=== PATIENT | female | born 1965 | race Caucasian/White ===

== ENCOUNTER → 2017-12-05 | Outpatient (CLI) | payer OTHER ==
[~2017-12-05] MED LIST: ABILIFY 5 MG TAB5 MG PO; ACETAMINOPHEN325 M1 PO; ALPRAZOLAM 0.0.25 M1 PO; CELEXA40 MG PO; CONCERTA36 M1 PO; CYMBALTA30 MG PO; CYMBALTA60 MG PO; ELIQUIS5 MG PO; FIORICET 50-321 EACH PO; FOCALIN XR40 MG PO; HIGH BP MED; IMITREX 50 MG T50 M1 PO; MOBIC15 MG PO; MS CONTIN15 MG PO; NABUMETONE 750750 M1 PO; NORCO 5-325 TA1 EACH PO; NUCYNTA ER100 MG PO; NUCYNTA100 MG PO; NUCYNTA75 MG PO; OXYCODONE-APAP1 EAC6 PO; PERCOCET 5-3251 EACH PO; PERCOCET 7.5-31 EACH PO; PREDNISONE 10 M10 M1 PO; TIROSINT75 MCG PO; TOPROL XL100 MG PO; VIIBRYD10 MG PO; WELLBUTRIN SR150 MG PO; ZIAC 10-6.25 M1 EACH PO; ZOLOFT100 MG PO; [UNRECOGNIZED DRUG - OTHER] PO; carvedilol PO
--- NOTE | 2017-12-10 07:21 | PAINCON ---
[facility] [address] [place] [address] PAIN MANAGEMENT CONSULTATION Name: RICHIE ARANDA Room: [facility] Tiffanie#: [id number] Admission: 12/05/17 Attend Phys: Shelby Santana Discharge: Date of : 65 Report #: [id number] THIS REPORT FOR: //name// CC: Mila Lucas DATE OF SERVICE: 12/05/2017 The patient is a 52-year-old female well known to the Pain [facility], typically treated for lumbar radiculopathy, requiring high-risk complex medication management. Last seen in the Pain Clinic on 09/12/2017. Continued on MS Contin 15 mg b.i.d. with Nucynta 100 mg 3-4 times a day, limit 100 tablets for 30 days. 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 Returns to Pain Clinic today. We had a prolonged visit today. Greater than 30 minutes was spent with the patient reviewing therapeutic options today. The patient notes she has completed her cardiac rehab. She is walking regularly still. She notes she is struggling with some depression following the surgery. She also notes that her father has been recently diagnosed with stage 4 pulmonary cancer. The patient is struggling with some intermittent atrial fibrillation. Her radiology manager feels that it may be related to surgery. They are postponing moving forward with catheter node ablation. The patient notes otherwise current pain is moderately well controlled. She rates it a 3 on a VAS. PHYSICAL EXAMINATION: Shows 5 feet 2 inches, 144-pound female, BMI is 26.2 kg/m2, blood pressure wnl, pulse 85, respirations 16. Rises from chair using armrest. Gait is tandem with subjective pain in the right leg, though lower extremity strength is preserved. Subjective chest wall pain is fairly nominal. We again talked about anxiety and depression, chronic pain and depression, and situational anxiety and depression. RECOMMENDATION: After a long discussion with the patient today, we have elected to add Cymbalta low-dose 30 mg 1 a day. Follow up in 1 month for reevaluation. If tolerating the medicine well, but not having significant efficacy, we may increase to 60 mg. I have taken the liberty of renewing 1 month her MS Contin 15 mg b.i.d. and Nucynta 100 mg, limit 100 tablets for 30 days. If doing well at next visit, we will resume multi-month prescription. We reviewed the fact that opiate medications are being used to provide analgesia adequate to support activities of daily living, not [place] [address] PAIN MANAGEMENT CONSULTATION Name: RICHIE ARANDA Room: [facility]#: [id number] Admission: 12/05/17 Attend Phys: Shelby Santana Discharge: Date of : 65 Report #: [id number] specific pain score on the 0-10 Visual Analog Scale. The current opiate medications are providing sufficient analgesia to allow the patient to participate in activities of daily living. The patient is not exhibiting any aberrant behavior suggestive of drug diversion. The patient is not having any adverse reactions to medications. The patient is not suffering from daytime somnolence or mental acuity changes. The patient is managing opiate-induced constipation with appropriate fhyn-xjk-ragkijf agents and dietary considerations. The patient was counseled on concern for caution with operating a motor vehicle while using opiate medications. A physical exam was performed and the patient's functional status was evaluated. All patients with back pain were advised against the bed rest greater than 4 days and were advised to return to normal activities. Pain score assessment was noted and the treatment plan was reviewed with the patient. All current medications, both prescribed and OTC were reviewed and reconciled on the electronic medical record. Tobacco screening was accomplished and smoking cessation was advised when indicated. BMI was noted and diet/exercise modification was recommended for all patients following outside normal parameters. I reviewed with the patient today their responsibilities to safeguard prescription medications, reviewed their responsibility to utilize medications only as prescribed by the physician. They are to seek and receive pain medications only from 1 physician group ( [facility]). They are to use 1 pharmacy and keep the clinic informed if they change pharmacies. Their responsibilities include making followup visits in a timely fashion and to avoid abrupt discontinuation of medication usage. Their responsibilities further include bringing their medications (bottles from the pharmacy with residual pills) to the visit for possible confirmation of pill counts and the patient understands it is their responsibility to submit to random drug screens to ensure both that the medications prescribed are present, and that no other controlled substances are present. All prescriptions provided today were generated electronically. The patient is discharged in good and stable condition after prolonged visit. Greater than 25 minutes was spent primarily counseling the patient. ASSESSMENT: 1. Lumbar radiculopathy. 2. Chronic axial back pain. 3. Complicated depression, reactive. 4. High-risk complex [place] [address] PAIN MANAGEMENT CONSULTATION Name: RICHIE ARANDA Shelby [facility] [id number] Admission: 12/05/17 Attend Phys: Shelby Santana Discharge: Date of : 65 Report #: [id number] Discharged in good and stable condition. <ELECTRONICALLY SIGNED> By: Parveen Lucas DO 12/10/17 0721 [id number] Lucas DO /nt
== END ==
LOC: M.PC 02:50
DX: M54.16 Radiculopathy, lumbar region (principal); F32.89 Other specified depressive episodes; M54.9 Dorsalgia, unspecified; Z79.899 Other long term (current) drug therapy

== ENCOUNTER → 2018-01-02 | Outpatient (CLI) | payer OTHER ==
--- NOTE | 2018-01-09 07:59 | PAINCON ---
[facility] [address] [place] [address] PAIN MANAGEMENT CONSULTATION Name: RICHIE ARANDA Room: [facility] Tiffanie#: [id number] Admission: 01/02/18 Attend Phys: Shelby Santana Discharge: Date of : 65 Report #: [id number] THIS REPORT FOR: //name// CC: Mila Lucas HISTORY OF PRESENT ILLNESS: This is a very pleasant 52-year-old female being treated for symptomatic lumbar radiculopathy, axial back pain requiring complex medication management. Last visit, we discussed some concerns with depression. The patient returns to pain clinic today noting pain continued to be problematic, but she is feeling a little bit better. She has been stable on MS Contin 15 mg b.i.d., Nucynta 100 mg t.i.d. for quite some time. We did get a buccal swab today. We will get a buccal random drug swab today. No aberrant behavior suggestive of drug diversion, simply complying with opiate consent to treat contract. She notes that the Cymbalta 30 mg daily does seem to be helping though she does feel just generally tired. She does have multiple anxieties including dealing with her father who has metastatic cancer. Personally, she had cardiac surgery for aortic arch aneurysm. She is actually doing well overall and states she started using melatonin. She states she has actually had an excellent night sleep last night, which is the first time in some time. She thinks it may have been related melatonin though in further discussion, she also notes that she did have a long discussion with the father today about a lot of end of life issues. She states it was, while better suite, a very helpful talk and she felt much more relaxed and at ease following the conversation. I talked today about continuing Cymbalta for another 2 or 3 weeks. If she continues to have daytime sedation and lethargy, we will simply discontinue the Cymbalta and evaluate its efficacy somewhat in retrospect. Otherwise, we will continue baseline medication unchanged including the MS Contin 15 mg b.i.d. and Nucynta 100 mg 1 tablet 3-4 times a day. We did briefly discuss that there is a concern that Nucynta may become unavailable due to [employer] company's somewhat limiting its production. She has been stable on this medication. We will continue to write for it as long as it is able. We reviewed the fact that opiate medications are being used to provide analgesia adequate to support activities of daily living, not attempting to achieve a specific pain score on the 0-10 Visual Analog Scale. The current opiate medications are providing sufficient analgesia to allow the patient to participate in activities of daily living. The patient is not exhibiting any [facility] [address] [place] [address] PAIN MANAGEMENT CONSULTATION Name: RICHIE ARANDA [facility] [id number] Admission: 01/02/18 Attend Phys: Shelby Santana Discharge: Date of : 65 Report #: [id number] aberrant behavior suggestive of drug diversion. The patient is not having any adverse reactions to medications. The patient is not suffering from daytime somnolence or mental acuity changes. The patient is managing opiate-induced constipation with appropriate zyxh-qop-hexsdyt agents and dietary considerations. The patient was counseled on concern for caution with operating a motor vehicle while using opiate medications. A physical exam was performed and the patient's functional status was evaluated. All patients with back pain were advised against the bed rest greater than 4 days and were advised to return to normal activities. Pain score assessment was noted and the treatment plan was reviewed with the patient. All current medications, both prescribed and OTC were reviewed and reconciled on the electronic medical record. Tobacco screening was accomplished and smoking cessation was advised when indicated. BMI was noted and diet/exercise modification was recommended for all patients following outside normal parameters. I reviewed with the patient today their responsibilities to safeguard prescription medications, reviewed their responsibility to utilize medications only as prescribed by the physician. They are to seek and receive pain medications only from 1 physician group ( [facility]). They are to use 1 pharmacy and keep the clinic informed if they change pharmacies. Their responsibilities include making followup visits in a timely fashion and to avoid abrupt discontinuation of medication usage. Their responsibilities further include bringing their medications (bottles from the pharmacy with residual pills) to the visit for possible confirmation of pill counts and the patient understands it is their responsibility to submit to random drug screens to ensure both that the medications prescribed are present, and that no other controlled substances are present. All prescriptions provided today were generated electronically. Follow up in 2 months for reevaluation. <ELECTRONICALLY SIGNED> By: Parveen Lucas DO 01/09/18 0759 [id number] [id number] Lucas DO /kaylene
== END ==
LOC: M.PC 04:52
DX: M54.16 Radiculopathy, lumbar region (principal); Z79.899 Other long term (current) drug therapy

== ENCOUNTER → 2018-03-27 | Outpatient (CLI) | payer OTHER ==
--- NOTE | 2018-03-28 07:13 | PAINCON ---
[address] [address] PAIN MANAGEMENT CONSULTATION Name: RICHIE ARANDA Room: [facility] Tiffanie#: [id number] Admission: 03/27/18 Attend Phys: Shelby Santana Discharge: Date of : 65 Report #: [id number] THIS REPORT FOR: //name// CC: Mila Lucas The patient is a very pleasant 52-year-old female, long treated for lumbar radiculopathy, axial back pain requiring complex medication management. The patient returns to pain clinic today. We had a prolonged visit, greater than 30 minutes was spent with the patient, 50% of the time was spent counseling the patient. She has ongoing pain in the low back, right buttock and posterior leg. She has had occasional epidural injections with improvement of symptoms; however, she did have an untoward reaction subsequent to a steroid injection, cervical epidural injection back in 2009. The patient developed dehydration, nausea, vomiting, hypokalemia. The patient was treated conservatively and ultimately discharged in stable condition. We have done few subsequent epidural injections, single injection in 12/2011, 02/2013 and 06/2014. Diagnostic studies include MRI of the lumbar spine back from 2008 noting focal right foraminal disk protrusion at L5-S1 with moderate inferior neural foraminal encroachment. Advanced facet arthropathy was noted at L4-L5 and L5-S1. The patient has been remarkably stable on current medications. We did receive a notice from [facility] noting that despite the fact the patient has been remarkably stable on moderate dose opiate taking the equivalent of up to 75 mg of morphine daily (MS Contin 15 mg b.i.d. with Nucynta 100 mg t.i.d.), [facility] is noting that the patient will require prior authorization for ongoing opiate management. The patient has an opiate consent to treat contract. We have performed random drug screens, always appropriate medications being noted. In fact, last random drug screen we accomplished was last visit. This has afforded some consternation. While we had arranged with the third alliance party vendor to have random drug screens covered with the patients being charged their usual copay, having been assured that this averages at $100 or less, the patient was charged nearly $1000 by the vendor. I did ask the administrative staff at [facility] to address this issue with the patient and strongly advised her to not pay this usurious fee. The patient presents to pain clinic today. Tragically, her 20-year-old daughter was involved in a motor vehicle accident on 01/18/2018 and lost her life. The patient is struggling with grief. [place] [address] PAIN MANAGEMENT CONSULTATION Name: RICHIE ARANDA [facility] [id number] Admission: 03/27/18 Attend Phys: Shelby Santana Discharge: Date of : 65 Report #: [id number] I had started the patient on Cymbalta 30 mg prior to help with some chronic pain concerns. She feels that this is affording some nominal amount of relief. We talked about increasing this to 60 mg a day for multiple obvious reasons. To her credit, she continues to attempt to do the treadmill daily, averaging about 60 minutes and she does stretch pre and post. She rates her pain today a 4 on a VAS. PHYSICAL EXAMINATION: Shows 5 feet 2 inches tall female, BMI is 27 kilograms per meter squared. Blood pressure 151/87, pulse 92, respirations are 18. Rises from chair using armrest. Cervical range of motion is adequate. Upper extremity strength is generally preserved. Some diffuse tenderness across the low back. Has a modestly antalgic gait with some diffuse tenderness in the right low back, buttock, and leg. Modestly positive straight leg raise on the right. Lower extremity strength, however, remains preserved. Some diffuse tenderness in the low back. No discrete trigger points are noted. We reviewed the fact that opiate medications are being used to provide analgesia adequate to support activities of daily living, not attempting to achieve a specific pain score on the 0-10 Visual Analog Scale. The current opiate medications are providing sufficient analgesia to allow the patient to participate in activities of daily living. The patient is not exhibiting any aberrant behavior suggestive of drug diversion. The patient is not having any adverse reactions to medications. The patient is not suffering from daytime somnolence or mental acuity changes. The patient is managing opiate-induced constipation with appropriate ehju-gmn-fuwhsfp agents and dietary considerations. The patient was counseled on concern for caution with operating a motor vehicle while using opiate medications. A physical exam was performed and the patient's functional status was evaluated. All patients with back pain were advised against the bed rest greater than 4 days and were advised to return to normal activities. Pain score assessment was noted and the treatment plan was reviewed with the patient. All current medications, both prescribed and OTC were reviewed and reconciled on the electronic medical record. Tobacco screening was accomplished and smoking cessation was advised when indicated. BMI was noted and diet/exercise modification was recommended for all patients following outside normal parameters. I reviewed with the patient today their responsibilities to safeguard prescription medications, reviewed their responsibility to utilize medications only as prescribed by the physician. They are to seek and receive pain medications only from 1 physician group ( [facility]). They are to use 1 pharmacy and keep the clinic informed if they change pharmacies. Their [facility] [address] [place] [address] PAIN MANAGEMENT CONSULTATION Name: RICHIE ARANDA Room: [facility]#: [id number] Admission: 03/27/18 Attend Phys: Shelby Santana Discharge: Date of : 65 Report #: [id number] responsibilities include making followup visits in a timely fashion and to avoid abrupt discontinuation of medication usage. Their responsibilities further include bringing their medications (bottles from the pharmacy with residual pills) to the visit for possible confirmation of pill counts and the patient understands it is their responsibility to submit to random drug screens to ensure both that the medications prescribed are present, and that no other controlled substances are present. All prescriptions provided today were generated electronically. ASSESSMENT: Symptomatic lumbar radiculopathy, chronic pain syndrome requiring complex medication management with comorbidity of complex grieving following of a child. RECOMMENDATIONS: After a long discussion with the patient today, we elected to increase Cymbalta to 60 mg daily, continue MS Contin 15 mg b.i.d. Unfortunately, the medication she has been most stable on, Nucynta 100 mg t.i.d. has been discontinued by the hand tool filer. I have taken the liberty of writing for this medication for 1 more month. I do not want to make a lot of changes at this fragile point in time for the patient. I did, however write for her 4-week release prescription to rotate from Nucynta 100 mg t.i.d. to Percocet 7.5/325 t.i.d. I have taken the liberty of writing for a total of 3 months of current medication. I did inform the patient that I am leaving the practice area. I will ask my partner, Dr. Angus Puente to see if he can work her into his schedule. Otherwise, we will have the patient follow up with her primary care physician and/or her third alliance party payer, [employer] to find a pain clinic physician in her network. Discharged in good and stable condition. Plan to have her follow up in [address] Angus Puente. She was seen for prolonged visit, greater than 30 minutes was spent counseling the patient today. <ELECTRONICALLY SIGNED> By: Parveen Lucas DO 03/28/18 0713 [id number] [id number] Lucas DO /nt
== END ==
LOC: M.PC 04:03
DX: M54.16 Radiculopathy, lumbar region (principal); G89.4 Chronic pain syndrome; Z79.899 Other long term (current) drug therapy

== ENCOUNTER → 2018-06-20 | Outpatient (CLI) | payer OTHER ==
--- NOTE | 2018-06-26 16:41 | PAINCON ---
[facility] [address] [place] [address] PAIN MANAGEMENT CONSULTATION Name: RICHIE ARANDA Room: [facility] Tiffanie#: [id number] Admission: 06/20/18 Attend Phys: Zunilda Puente MD Discharge: Date of : 65 Report #: [id number] THIS REPORT FOR: //name// CC: Mila Puente DATE OF SERVICE: 06/20/2018 CHIEF COMPLAINT: Low back and right buttocks pain as well as pain down to the right hip. Pain has been a problem for a number of years. FOLLOWUP HISTORY: The patient is a 52-year-old female who has been followed in the pain clinic by Dr. Parveen Lucas. This is my first visit with the patient. She is a pleasant female who has been plagued by lumbar radiculopathy. She has axial back pain and required complex medication management. The patient has received improvement with use of her medications. She finds that Cymbalta, morphine and oxycodone are helpful. Pain involves her low back with radiation down to the right buttocks and right hip. Over the last 2 weeks, she has noted some pain and discomfort in her neck. Described as constant. Notes that it is worse when she is turning left and right as well as looking up. Feels that the right hip pain is stable at this juncture. She would like to have her medications renewed. MRI results from 2008 showed some right foraminal disk protrusion at L5-S1 and moderate inferior neural foraminal encroachment. Advance facet arthropathy was also noted at L4-L5 and L5-S1. She has been stable on her current medications. She did find that Nucynta was helpful. Unfortunately, it appears that the Nucynta has been taken off the market. ALLERGIES: No known drug allergies. MEDICATIONS: Eliquis 5 mg b.i.d., Cymbalta 60 mg, metoprolol XL 100, morphine sulfate 15 mg b.i.d., Percocet 7.5 mg t.i.d., carvedilol 2 tablets b.i.d., Tikosyn 1 tablet daily. PAST MEDICAL HISTORY: 1. Status post aortic valve replacement secondary to bicuspid valve. 2. History of ascending thoracic aneurysm repair. 3. Atrial fibrillation after aortic aneurysm repair. 4. Chronic atrial fibrillation at this juncture. 5. Depression since 18-year-old daughter was in a motor vehicle accident. 6. Low back pain, right buttocks pain and right hip pain. PAST SURGICAL HISTORY: 1. Aortic valve replacement in 2017. 2. Hysterectomy. 3. [place] [address] PAIN MANAGEMENT CONSULTATION Name: RICHIE ARANDA Room: [facility] Tiffanie#: [id number] Admission: 06/20/18 Attend Phys: Zunilda Puente MD Discharge: Date of : 65 Report #: [id number] REVIEW OF SYSTEMS: Generally negative at this point for fever, chills, shortness of breath, chest pain, bowel problems, bladder problems. PAIN CLINIC ASSESSMENT: 1. History of osteoarthritis involving her right hip. 2. Height 5 feet 2 inches, weight 155 pounds and BMI is 28.5. 2. Vital signs: Blood pressure 149/90, heart rate 90, respiratory rate 16, room air saturation 100% and temperature 98.8. 3. Pain score 3/10 in the hip 7-8/10 involving the neck. 4. Fall risk. The patient has not fallen in the last 3 months. 5. Blood thinner. The patient is on blood thinner, Eliquis secondary to atrial fibrillation. 6. Hypertension. The patient is being treated for hypertension. 7. Opioid therapy. The patient is receiving opioid medications on a regular basis from the pain clinic. 8. Risk assessment tool. 9. Functional assessment tool. 10. Recreational drug use. The patient denies use of recreational drugs. 11. Tobacco: The patient denies use of tobacco. 12. Alcohol: The patient uses alcohol on a regular basis. MENTAL STATUS EXAMINATION: GENERAL: The patient is a well-developed, well-nourished white female. Appears her stated age. She is alert and oriented x 3. Affect is appropriate. Speech is fluent. HEENT: Normocephalic, atraumatic. Extraocular eye muscles intact. Sclerae nonicteric. Mucous membranes are moist. NECK: With some limited range of motion with left light bending, left and right extension. The patient rates this pain in the neck is somewhat problematic and rates it as a 7-8 at this juncture. She has some soreness in the area of the trapezius, left and right, some discomfort in the area of the superior portion of the scapula, soreness in the occipital area on the left, not so much on the right. HEART: Regular rate with sign of murmur. Pulses felt. Regular rate today. ABDOMEN: Nontender. Low back without significant kyphosis, scoliosis. Has pain and discomfort in the right hip as well as some pain radiating down to the right leg. Muscle strength in the upper extremity judged to be 5/5 for the major muscle groups, 5/5 for the lower back as well. IMPRESSION: Low back pain, right buttocks pain and right hip pain. RECOMMENDATIONS: We discussed treatment options with the patient. At this juncture, we will continue with her current regimen of Cymbalta 60 mg daily, morphine ER 15 mg b.i.d., oxycodone 7.5 mg t.i.d. [place] [address] PAIN MANAGEMENT CONSULTATION Name: RICHIE ARANDA [facility]#: [id number] Admission: 06/20/18 Attend Phys: Zunilda Puente MD Discharge: Date of : 65 Report #: [id number] the near future. We would like to thank you for letting us participate in her care. We hope she continues to improve. <ELECTRONICALLY SIGNED> By: Zunilda Puente MD 06/26/18 1641 [id number]. Angus Puente MD /nt
== END ==
LOC: M.PC 03:20
DX: M54.5 Low back pain (principal); M25.551 Pain in right hip; I48.91 Unspecified atrial fibrillation; F32.9 Major depressive disorder, single episode, unspecified; Z90.710 Acquired absence of both cervix and uterus; Z90.89 Acquired absence of other organs

== ENCOUNTER → 2018-10-01 | Outpatient (CLI) | payer OTHER ==
[~2018-10-01] MED LIST changes: +HYDROCODONE-AP1 EA11 PO
--- NOTE | 2018-10-04 17:20 | PAINCON ---
[facility] [address] [place] [address] PAIN MANAGEMENT CONSULTATION Name: RICHIE ARANDA Room: [facility] WILLEM Moreno#: [id number] Admission: 10/01/18 Attend Phys: Zunilda Puente MD Discharge: Date of : 65 Report #: [id number] THIS REPORT FOR: //name// CC: Mila Puente DATE OF SERVICE: 10/01/2018 FOLLOWUP HISTORY: Still said because my daughter in the early part of the year. HISTORY: The patient is a 52-year-old female who has been followed in the pain clinic. She has pain and discomfort in her buttocks as well as pain that radiates down to the right hip to the lateral side. She has had this problem for a number of years. Finds that medications of morphine 15 mg and oxycodone have been helpful. Feels that the oxycodone may be a little bit too strong. Feels that this makes her somewhat a bit more sedated. She would like to try a different medication. She has used hydrocodone and Vicodin in the past. She would like to try this and see whether or not there is less problem as a result of this medication and less drowsiness associated with it. She rates her pain as a 4/10. As you may recall, she had some problem with her heart. She underwent a cardiac ablation in August. Overall, she feels that the pain is improved with her current medical regimen and would like to continue with it. She would like to try hydrocodone instead of oxycodone. LABORATORY DATA: As you may recall, patient has an MRI that showed right foraminal disk protrusion at L5-S1 and moderate inferior neural foraminal encroachment in the low back area. Has some advanced facet arthropathy noted at L4-L5 and L5-S1. The patient did try Nucynta the past. Nucynta was taken off the market, therefore, she was placed on the oxycodone. ALLERGIES: No known drug allergies. CURRENT MEDICATIONS: Eliquis 5 mg b.i.d., Cymbalta 60 mg, metoprolol XL, morphine sulfate 15 mg, Percocet 7.5 mg t.i.d., carvedilol 2 tablets b.i.d., Tikosyn one tablet daily. PAIN CLINIC ASSESSMENT/PQRS: 1. History of osteoarthritis involving her left hip and low back area. 2. The patient is not being treated for rheumatoid arthritis. 3. Height 5 feet 2 inches, weight 156 pounds, BMI is 28. 4. Vital signs: Blood pressure 141/83, heart rate 95, respiratory rate 16, room air saturation 99%, temperature 98.0. 5. Pain score 4/10. 6. Fall history: The patient has not fallen in the last 3 months. 7. Blood thinner. The patient is on a blood thinning [place] [address] PAIN MANAGEMENT CONSULTATION Name: RICHIE ARANDA Room: [facility]#: [id number] Admission: 10/01/18 Attend Phys: Zunilda Puente MD Discharge: Date of : 65 Report #: [id number] atrial fibrillation. 8. Hypertension. The patient is being treated for hypertension. 9. Opioid therapy. The patient is receiving medications on a regular basis from the pain clinic. 10. Risk assessment tool, low for opioid use. 11. Functional assessment tool. 12. Recreational drug use. The patient denies use of recreational drugs. 13. Tobacco: The patient denies use of tobacco. 14. Alcohol: The patient denies use of alcoholic beverages on a regular basis. PHYSICAL EXAMINATION: GENERAL: The patient is a well-developed, well-nourished white female. Appears her stated age. She is alert and oriented x 3. She is somewhat tearful as we discussed the loss associated with her daughter who was involved in a motor vehicle accident in December of this year. States that she tries to stay strong for her son who is often college. HEENT: Normocephalic, atraumatic. Extraocular eye muscles intact. Sclerae nonicteric. Mucous membranes are moist. The patient does have hearing aids. NECK: With some limitation with left and right lateral bending, left and right lateral extension. The patient has some soreness in the area of the trapezius, left and right. Some pain in the area of the scapula with soreness in the occipital area on the left. HEART: Regular rate with history of murmur, history of atrial fibrillation. ABDOMEN: Nontender. Bowel sounds positive. MUSCULOSKELETAL: Low back pain without significant kyphosis or scoliosis. No significant lordosis. The patient is explaining some pain that radiates down the buttocks, left lateral L5 distribution on the right to a level above the knee. Muscle strength 5/5. IMPRESSION: 1. Low back pain. 2. Atrial fibrillation, status post ablation in 08/2008. RECOMMENDATIONS: We discussed treatment options with the patient. She feels that the oxycodone medication may be causing some increased sedation. She has used Vicodin, which was less problematic. She was on Nucynta. This medication was taken off the market. At this juncture, she would like to try hydrocodone in place of oxycodone. She feels that this might be beneficial with less sedation. We have discussed this and will try hydrocodone 7.5/325 mg tablets 1 p.o. t.i.d. A script for these medications have been provided. If she notes continuous sedation, we will consider the possibility of trying [place] [address] PAIN MANAGEMENT CONSULTATION Name: RICHIE ARANDA Room: [facility]#: [id number] Admission: 10/01/18 Attend Phys: Zunilda Puente MD Discharge: Date of : 65 Report #: [id number] would like to thank you for letting us participate in her care. We hope she continues to improve. <ELECTRONICALLY SIGNED> By: Zunilda Puente MD 10/04/18 1720 [id number]. Angus Puente MD /nt
== END ==
LOC: M.PC 09-12 05:35
DX: M54.5 Low back pain (principal); I48.91 Unspecified atrial fibrillation; Z79.899 Other long term (current) drug therapy

== ENCOUNTER → 2018-12-24 | Outpatient (CLI) | payer OTHER ==
[~2018-12-24] MED LIST changes: +DOFETILIDE250 MCG PO; +LEXAPRO 10 MG T10 M2 PO; +TOPROL XL25 MG PO
--- NOTE | ~2018-12-24 | PAINCON ---
[address] [address] PAIN MANAGEMENT CONSULTATION Name: RICHIE ARANDA Room: [facility] Moreno#: [id number] Admission: 12/24/18 Attend Phys: Zunilda Puente MD Discharge: Date of : 65 Report #: [id number] THIS REPORT FOR: //name// CC: Mila Puente DATE OF SERVICE: 12/24/2018 CHIEF COMPLAINT: Here for medication renewal. HISTORY OF PRESENT ILLNESS: The patient is a 53-year-old female who has been followed in the pain clinic. As you recall, she has pain and discomfort that radiates down into her hips. She has had problems with this for a number of years. She has been treated with morphine and oxycodone. She feels that these medications continue to be helpful. She continues to experience low back pain. She feels that her pain remains about the same level of 3/10. She has noticed pain in her arms and legs. They have been aching. She has noted some worsening of pain given the change in the weather, which has been quite variable over the last few days. Notes that activities such as walking, sitting, standing, climbing stairs can be problematic. Also, notes some improvement when she takes her medication, rest, massage as well as stretching exercises. Feels that her hydrocodone and morphine are beneficial and would like to have them renewed. As you may recall, she has some problems with her heart back in August. She has undergone a cardiac ablation. ALLERGIES: No known drug allergies. CURRENT MEDICATIONS: Eliquis 5 mg b.i.d., Cymbalta 60 mg, metoprolol XL, morphine sulfate 15 mg, Percocet 7.5 mg t.i.d., carvedilol 2 tablets b.i.d., Tikosyn 1 tablet daily. PAIN CLINIC ASSESSMENT AND PQRS: 1. History of osteoarthritis involving her left hip and low back area. The patient is not being treated for rheumatoid arthritis. 2. Height 5 feet 2 inches, weight 160 pounds, BMI is 29.6. 3. Vital Signs: Blood pressure 132/82, heart rate 90, respiratory rate 16, room air saturation is 95%, temperature 98.1. 4. Pain intensity 01/05. 5. Fall history. The patient has not fallen in the last 3 months. 6. Blood thinner. The patient is on a blood thinning medication secondary to atrial fibrillation. 7. Hypertension. The patient is being treated for hypertension. 8. Opioids greater than 6 weeks. The patient receives her medication from one source, the pain clinic. 9. Risk assessment tool, [place] [address] PAIN MANAGEMENT CONSULTATION Name: RICHIE ARANDA Room: [facility]#: [id number] Admission: 12/24/18 Attend Phys: Zunilda Puente MD Discharge: Date of : 65 Report #: [id number] 10. Functional assessment tool. 11. Recreational drug use. The patient denies use of recreational drugs. 12. Tobacco: The patient denies use of tobacco. 13. Alcoholic beverages. The patient denies use of alcohol on a regular basis. PHYSICAL EXAMINATION: GENERAL: The patient is a well-developed, well-nourished, white female. Appears her stated age. She is alert and oriented x 3. Her affect is appropriate. The patient has had some trauma in her life. As you recall, her daughter was involved in a motor vehicle accident. Still has a son in college. HEENT: Normocephalic, atraumatic. Extraocular eye muscles intact. Sclerae nonicteric. Mucous membranes are moist. The patient has hearing aids in place. NECK: Without JVD. Has some left and right lateral bending limitations. Soreness in the upper shoulder area. HEART: History of atrial fibrillation, status post ablation. ABDOMEN: Nontender. Bowel sounds present. MUSCULOSKELETAL: The patient without significant scoliosis or kyphosis. Has some pain that radiates down to the L5 distribution on the left. Muscle strength is judged to be 5-/5 for the major muscle groups. 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 She feels that her medications are working reasonably well. She is not having any problems with them. We will renew her medications. A script for hydrocodone 7.5 mg 1 p.o. t.i.d. and morphine 15 mg ER b.i.d. have been rewritten. The patient will call us if she has any concerns. 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 They can cause development of tolerance with prolonged use as well as less effect because of the tolerance. The patient is also aware of the possibility of addiction with these medications. Feels medications are working reasonably well and able her to remain gainfully employed. We would like to thank you for letting us participate in her care. We hope she continues to improve. By: [id number]. Angus Puente MD /RYAN
== END ==
LOC: M.PC 09:30
DX: M25.551 Pain in right hip (principal); M25.552 Pain in left hip; M54.5 Low back pain; Z79.899 Other long term (current) drug therapy

== ENCOUNTER → 2019-03-18 | Outpatient (CLI) | payer OTHER ==
--- NOTE | ~2019-03-18 | PAINCON ---
[facility] [address] [place] [address] PAIN MANAGEMENT CONSULTATION Name: ROSIRICHIE RICE Room: [facility] Tfifanie#: [id number] Admission: 03/18/19 Attend Phys: Zunilda Puente MD Discharge: Date of : 65 Report #: [id number] THIS REPORT FOR: //name// CC: Mila Puente DATE OF SERVICE: 03/18/2019 CHIEF COMPLAINT: Low back pain with pain radiating down to the right hip and legs. FOLLOWUP HISTORY: The patient is a 53-year-old female, who has been followed in the pain clinic. As you recall, she has discomfort in her hips. She has had pain, which has been problematic for a number of years. She has been treated with morphine and oxycodone. She finds that these medications continue to be helpful. She rates her pain as a 5/10. The weather has been rainy and continues to be volatile. She has noted increased pain and discomfort as a result of that. She states that she continues to do stretching exercises. She has had some increase in her pain secondary to her stress in regards to her . They are contemplating a separation. Overall, she feels that her medications are helpful and continued to be beneficial. CURRENT MEDICATIONS: Eliquis 5 mg b.i.d., Cymbalta 60 mg, metoprolol XL, morphine sulfate 15 mg b.i.d., Percocet 7.5 mg t.i.d., Coreg 2 tablets b.i.d., and Tikosyn one tablet daily. ALLERGIES: No known drug allergies. PAIN CLINIC ASSESSMENT AND PQRS: 1. History of osteoarthritis. The patient has involvement of her left hip and low back area. She has not been treated for rheumatoid arthritis. 2. Pain intensity is 5/10. 3. Fall history: The patient has not fallen in the last 3 months. 4. Blood thinner. The patient is not on a blood thinning medication. 5. Hypertension. The patient is being treated for hypertension. 6. Opioids greater than 6 weeks. The patient has received medication from one source, the pain clinic. 7. Risk assessment tool, low for opioid use. 8. Functional assessment tool. 9. Recreational drug use. The patient denies use of recreational drugs. 10. Tobacco: The patient denies use of tobacco. 11. Alcoholic beverages. The patient denies use of alcoholic beverages. PHYSICAL EXAMINATION: GENERAL: The patient is a well-developed, well-nourished white female. She appears her stated age. She is alert and oriented x 3. [place] [address] PAIN MANAGEMENT CONSULTATION Name: ROSIRICHIE DWAYNE Room: [facility] Tiffanie#: [id number] Admission: 03/18/19 Attend Phys: Zunilda Puente MD Discharge: Date of : 65 Report #: [id number] appropriate. Speech is fluent. Height is 5 feet 2 inches, weight is 157 pounds, and BMI is 28.7. VITAL SIGNS: Blood pressure is 117/77, heart rate is 87, respiratory rate is 16, room air saturation is 97%, and temperature is 98.3. HEENT: The patient has extraocular eye muscles, which are intact. Sclerae nonicteric. Mucous membranes are moist. Hearing is helped with use of aids. She does have hearing aids in place. NECK: Without JVD, adenopathy, or bruits. The patient has pain and discomfort in the left as well as the right upper shoulder area. HEART: Regular rate. History of atrial fibrillation, status post ablation. ABDOMEN: Nontender. Bowel sounds present. MUSCULOSKELETAL: The patient is without significant scoliosis or kyphosis. She has pain that radiates down into the L5-S1 dermatomal distribution on the left. Muscle strength is judged to be 5-/5 for the major muscle groups. 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 She feels her medications are working reasonably well. She has not had any problem with her medications. She has continued to work through the loss of her daughter. Her daughter was killed in a traumatic accidents involving a motor vehicle. She still has a son in college. She notes some difficulty in her private life. She and her are contemplating . She feels that her pain is about 50% improved with her current medications. She notes that she still has pain and discomfort with certain activities, walking, sitting, standing, and other activities of daily living. She states that she is taking the medications as prescribed. She is not contemplating any harm to herself. She has been taking the medications on a regular basis. She will continue with her medications. She will call us if she has any concerns. A script for her medications of hydrocodone 7.5 mg 1 tablet p.o. t.i.d. and morphine 15 mg b.i.d. have been written. We would like to thank you for letting us to participate in her care. We hope she continues to improve. Hopefully, her family dynamics continue to improve. By: [id number]. Angus Puente MD /RYAN
== END ==
LOC: M.PC 01:40
DX: M47.816 Spondylosis without myelopathy or radiculopathy, lumbar region (principal); M25.551 Pain in right hip; M16.12 Unilateral primary osteoarthritis, left hip; I10 Essential (primary) hypertension; Z79.899 Other long term (current) drug therapy; Z79.891 Long term (current) use of opiate analgesic

== ENCOUNTER → 2019-06-05 | Outpatient (CLI) | payer OTHER ==
[~2019-06-05] MED LIST changes: +CARVEDILOL12.5 MG PO; +REXULTI0.25 MG PO; +SENNA8.6 MG PO
--- NOTE | ~2019-06-05 | PAINCON ---
[facility] [address] [place] [address] PAIN MANAGEMENT CONSULTATION Name: RICHIE ARANDA [id number] Admission: 06/05/19 Attend Phys: Zunilda Puente MD Discharge: Date of : 65 Report #: [id number] THIS REPORT FOR: //name// CC: Mila Puente DATE OF SERVICE: 06/05/2019 PRIMARY CARE PHYSICIAN: Mila Skinner MD CHIEF COMPLAINT: Here for medication renewal. HISTORY OF PRESENT ILLNESS: The patient is a 53-year-old female who has been followed in the pain clinic because of chronic pain. She has pain radiating down into her hips. She has been treated for many years because of this. She finds that the morphine and oxycodone have been beneficial. She continues to work at home. 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 She notes that stretching exercises continue to be helpful. She and her has been undergoing a stressful situation. She has recently moved out. Because of the moving of her items with their pending divorce, she has noted some increased pain and discomfort in her back. She is still dealing with the loss of her daughter within the last year. She rates her pain as a 5/10. ALLERGIES: No known drug allergies. CURRENT MEDICATIONS: Eliquis 5 mg b.i.d., Cymbalta 60 mg, metoprolol XL, morphine 15 mg b.i.d., Percocet 7.5 mg t.i.d., Coreg 2 tablets b.i.d., Tikosyn one tablet daily. PAIN CLINIC ASSESSMENT/PQRS: 1. History of osteoarthritis. The patient has involvement of her left hip and low back area. She is not being treated for rheumatoid arthritis. 2. Height 5 feet 2 inches, weight 161 pounds, BMI is 29. 3. VITAL SIGNS: Blood pressure 137/95, heart rate 85, respiratory rate 16, room air saturation is 99%. Temperature is 98.5. 4. Pain intensity 03/07. 5. Fall risk. The patient has not fallen in the last 3 months. 6. Blood thinner. The patient is not on a blood thinning medication. 7. Hypertension. The patient is being treated for hypertension. 8. Opioids greater than 6 weeks. 9. Risk assessment tool, low for opioid use. 10. Functional assessment tool. 11. Recreational drug use. The patient denies. 12. Tobacco: The patient denies. 13. Alcohol: The patient [place] [address] PAIN MANAGEMENT CONSULTATION Name: RICHIE ARANDA Room: [facility]#: [id number] Admission: 06/05/19 Attend Phys: Zunilda Puente MD Discharge: Date of : 65 Report #: [id number] PHYSICAL EXAMINATION: GENERAL: The patient is a well-developed, well-nourished white female. Appears her stated age. She is alert and oriented x 3. Affect is appropriate. Speech is fluent. HEENT: Normocephalic, atraumatic. Extraocular eye muscles intact. Sclerae nonicteric. Mucous membranes are moist. The patient has bilateral hearing aids in place. NECK: Without adenopathy or JVD. The patient has pain and discomfort in the right shoulder area. HEART: Regular rate S1. History of atrial fibrillation, status post ablation. ABDOMEN: Nontender. Bowel sounds present. MUSCULOSKELETAL: The patient without significant scoliosis, kyphosis. She has pain that is radiating down into her L5-S1 dermatomal distribution on the left. Muscle strength judged to be 5/5 for the major muscle groups in the upper extremity. IMPRESSION: 1. Chronic low back pain. 2. History of atrial fibrillation status post ablation, 08/2008. RECOMMENDATIONS: We discussed treatment options with the patient. At this juncture, she feels that her medications are helpful. We will renew her hydrocodone medication. She will continue to take her medications as prescribed. She will take hydrocodone 7.5 mg 1 p.o. t.i.d. She will also continue with the morphine sulfate 15 mg 1 p.o. b.i.d. She will call us if she has any problems with her medications. The patient is contemplating buying an [employer] watch. We discussed the benefits of the watch in regards to possibly alerting her should she have problems with recurrence of atrial fibrillation. Also, the other attributes of the watch which are aimed at healthcare. We would like to thank you for letting us participate in her care. We hope she continues to improve. By: [id number]. Angus Puente MD /RYAN
== END ==
LOC: M.PC 05:13
DX: M54.5 Low back pain (principal); G89.29 Other chronic pain; I48.91 Unspecified atrial fibrillation; Z79.899 Other long term (current) drug therapy; Z79.891 Long term (current) use of opiate analgesic

== ENCOUNTER → 2019-08-28 | Outpatient (CLI) | payer OTHER ==
--- NOTE | 2019-09-08 13:25 | PAINCON ---
[facility] [address] [place] [address] PAIN MANAGEMENT CONSULTATION Name: RICHIE ARANDA [id number] Admission: 08/28/19 Attend Phys: Zunilda Puente MD Discharge: Date of : 65 Report #: [id number] THIS REPORT FOR: //name// CC: Mila Puente DATE OF SERVICE: 08/28/2019 CHIEF COMPLAINT: Here for medication renewal. HISTORY: The patient is a 53-year-old female who has been followed in the Pain Clinic because of chronic pain. Rates her pain as a 4/10. Has pain in the low back area. Also has pain in a number of joints. This pain has been problematic for a number of years. As you may recall, her daughter in 01/13. She is still grieving her loss. She is recently from her . Feels that her pain medications are helpful. They help decrease her pain and place it at the level of 50% improved. Notes that changes in the weather of cold temperature, walking, sitting, standing, climbing stairs have been somewhat more problematic. She finds that the morphine and hydrocodone help curtail the pain and would like to have the medications renewed. 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 ALLERGIES: No known drug allergies. CURRENT MEDICATIONS: 1. Eliquis 5 mg b.i.d. 2. Cymbalta 60 mg. 3. Metoprolol XL. 4. Morphine 15 mg b.i.d. 5. Percocet 7.5 mg t.i.d. 6. Coreg two tablets b.i.d. 7. Tikosyn one tablet daily. PAIN CLINIC ASSESMMENT AND PQRS: 1. History of osteoarthritis. The patient has some involvement in her left hip and low back area. She is not being treated for rheumatoid arthritis. 2. Height 5 feet 2 inches, weight 144 pounds. BMI is 26. 3. Vital signs: Blood pressure 131/88, heart rate 72, respiratory rate 16, room air saturation 96%, temperature 97.7. 4. Pain intensity is 4/10. 5. Fall risk. The patient has not fallen in the last 3 months. 6. Blood thinner. The patient is not on a blood thinning medication. 7. Hypertension. The patient is being treated for hypertension. 8. Opioids greater than 6 weeks. The patient receives her medication from one source, the Pain Clinic. 9. Risk assessment tool, [place] [address] PAIN MANAGEMENT CONSULTATION Name: RICHIE ARANDA Room: [facility]#: [id number] Admission: 08/28/19 Attend Phys: Zunilda Puente MD Discharge: Date of : 65 Report #: [id number] 10. Functional assessment tool. 11. Recreational drug use. The patient denies. 12. Tobacco. The patient denies. 13. Alcohol. The patient denies use of alcoholic beverages. PHYSICAL EXAMINATION: GENERAL: The patient is a well-developed, well-nourished white female. Appears her stated age. She is alert and oriented x 3. Her affect is appropriate. Speech is fluent. HEENT: Normocephalic, atraumatic. Extraocular eye muscles intact. Sclerae nonicteric. Mucous membranes are moist. The patient has bilateral hearing aids. NECK: Without adenopathy or JVD. Has some discomfort in her right shoulder area. HEART: Regular rate. The patient has a history of atrial fibrillation status post ablation. ABDOMEN: Nontender. Bowel sounds present. MUSCULOSKELETAL: The patient is without significant scoliosis, kyphosis or lordosis. Does have some pain that radiates down the L5-S1 dermatomal distribution on the left. Muscle strength judged to be 5/5 for the major muscle groups in the upper extremity. IMPRESSION: 1. Chronic low back pain. 2. History of atrial fibrillation status post ablation in 08/2008, stable. RECOMMENDATIONS: We discussed treatment options with the patient. We will continue with her opioid medication. She feels that it is helpful. She is still grieving for the loss of her daughter. She is not thinking of harming herself. She feels that the hydrocodone medication as well as the morphine are beneficial and would like to continue with their use. She recently . She is aware that opioid medications can be helpful, but may become less effective over time. Overall, she has about 50% improvement in pain and would like to have the medications renewed. A script for her medications of morphine sulfate 15 mg one p.o. b.i.d. has been written. The patient will also continue with hydrocodone 7.5 mg one p.o. t.i.d., total of 90 tablets monthly. The patient will call us if she has any problems with her medications. We would like to thank you for letting us participate in her care. We hope she continues to improve. <ELECTRONICALLY SIGNED> By: Zunilda Puente MD 09/08/19 1325 [id number]. Angus Puente MD /nt
== END ==
LOC: M.PC 04:59
DX: G89.29 Other chronic pain (principal); M54.5 Low back pain; I48.91 Unspecified atrial fibrillation

== ENCOUNTER → 2020-06-29 | Outpatient (CLI) | payer OTHER ==
[~2020-06-29] MED LIST changes: +MEDROLDOSEPACK PO
--- NOTE | 2020-07-22 08:41 | PAINCON ---
[facility] [address] [place] [address] PAIN MANAGEMENT CONSULTATION Name: RICHIE ARANDA Room: [facility] Tiffanie#: [id number] Admission: 06/29/20 Attend Phys: Zunilda Puente MD Discharge: Date of : 65 Report #: [id number] THIS REPORT FOR: //name// cc: TRICIA Gibson family physician/PCP TRICIA - Paige family physician/PCP ~ THIS REPORT FOR: //name// CC: TRICIA physician/PCP Zunilda Puente DATE OF SERVICE: 06/29/2020 CHIEF COMPLAINT: Low back, joint and right hip pain. HISTORY: The patient is a 54-year-old female who has been seen in the pain clinic in the past because of chronic low back pain. She continues to have pain involving her right hip. She also notes some joint discomfort. This pain has been ongoing for a number of years. She is recently . She lost her insurance. She has been off pain medications because of the financial situation. She has been taking ibuprofen 4-5 pills b.i.d. She also complains of pain that is radiating from her right hip down into her leg. She is experiencing some numbness, tingling and discomfort in her right foot. She rates it as a 7/10. She notes that the pain is worse with prolonged sitting activity, changes in weather. Notes that rest, heat and medications, improve her level of comfort. She has returned today for renewal of her medications. ALLERGIES: No known drug allergies. CURRENT MEDICATIONS: Wellbutrin 150 mg, Coreg 12.5 mg, Rexulti 0.25 mg, senna p.r.n. constipation, hydrocodone 7.5 mg 1 p.o. q.i.d., morphine extended release 15 mg one p.o. b.i.d. PAIN CLINIC ASSESSMENT AND PQRS: 1. History of osteoarthritis. The patient has some involvement in her left hip and low back area. She is not being treated for rheumatoid arthritis. 2. Height 5 feet 2 inches, weight 145 pounds, BMI is 26.6. 3. Vital signs: Blood pressure 147/107, heart rate 86, respiratory rate 16, room air saturation is 100%. 4. Pain intensity is 7/10, temperature 98.4. 5. Fall risk. The patient has not fallen in the last 3 months. 6. Blood thinner. The patient is not on a blood thinning medication. 7. Hypertension. The patient is being treated for hypertension. 8. Opioids greater than 6 weeks. The patient received medication from the pain clinic. 9. Functional assessment tool, low for opioid use. 10. Recreational drug use. [place] [address] PAIN MANAGEMENT CONSULTATION Name: RICHIE ARANDA Room: [facility]#: [id number] Admission: 06/29/20 Attend Phys: Zunilda Puente MD Discharge: Date of : 65 Report #: [id number] 11. Tobacco: The patient denies. 12. Alcohol. The patient denies use of alcoholic beverages. PHYSICAL EXAMINATION: GENERAL: The patient is a well-developed, well-nourished white female. Appears her stated age. She is alert and oriented x 3. Her affect is appropriate. Speech is fluent. HEENT: Normocephalic, atraumatic. Extraocular eye muscles intact. Sclerae nonicteric. Mucous membranes are moist. The patient is wearing a facial covering. She has bilateral hearing aids in place. HEART: History of atrial fibrillation, status post ablation. ABDOMEN: Nontender. Bowel sounds present. MUSCULOSKELETAL: The patient without significant scoliosis, kyphosis or lordosis. The patient has some pain that radiates down in the L5-S1 dermatomal distribution. Muscle strength judged to be 5/5 for the major muscle groups in the upper extremity. IMPRESSION: 1. Chronic low back pain. 2. History of lumbar radicular pain. 3. History of atrial fibrillation, status post ablation 08/2008, stable. RECOMMENDATIONS: We discussed treatment options with the patient. At this juncture, we will continue with her medications of HYDROCODONE AND MORPHINE. A script for these medications have been provided. The patient will take hydrocodone 7.5 mg 1 p.o. q.i.d. She will also continue with morphine 15 mg 1 p.o. b.i.d. She will call us if she has any concerns. We would like to thank you for letting us participate in her care. We hope she continues to improve. <ELECTRONICALLY SIGNED> By: Zunilda Puente MD 07/22/20 [id number]. Angus Puente MD /kaylene
== END ==
LOC: M.PC 11:00
PROVIDERS: ATTEND Anesthesiology Pain Medicine
DX: G89.29 Other chronic pain (principal); M54.5 Low back pain; I10 Essential (primary) hypertension; Z68.26 Body mass index [BMI] 26.0-26.9, adult; Z79.891 Long term (current) use of opiate analgesic; Z79.899 Other long term (current) drug therapy

== ENCOUNTER → 2020-11-25 | Outpatient (CLI) | payer OTHER | LOC: M.PC 08:18 | PROVIDERS: ATTEND Anesthesiology Pain Medicine | DX: M54.5 Low back pain (principal); M25.551 Pain in right hip; G89.29 Other chronic pain; Z87.39 Personal history of other diseases of the musculoskeletal system and connective tissue; Z86.79 Personal history of other diseases of the circulatory system ==

== ENCOUNTER → 2021-04-19 | Outpatient (CLI) | payer BC | LOC: M.PC 08:55 | PROVIDERS: ATTEND Anesthesiology Pain Medicine | DX: G89.29 Other chronic pain (principal); M54.5 Low back pain; Z86.79 Personal history of other diseases of the circulatory system; Z87.39 Personal history of other diseases of the musculoskeletal system and connective tissue; Z79.891 Long term (current) use of opiate analgesic ==

== ENCOUNTER → 2021-08-30 | Outpatient (CLI) | payer OTHER | LOC: M.PC 08:40 | PROVIDERS: ATTEND Anesthesiology Pain Medicine | DX: G89.29 Other chronic pain (principal); M54.16 Radiculopathy, lumbar region; I48.91 Unspecified atrial fibrillation; Z79.899 Other long term (current) drug therapy ==